=== PATIENT | male | born 1985 | race Caucasian/White ===

== ENCOUNTER 2017-03-16 12:11 | Emergency (ER) | payer OTHER ==
[2017-03-16 12:16] VITALS: RESP 16; TEMP 98.6
--- NOTE | 2017-03-16 12:45 | EDPHY ---
General Narrative: CHIEF COMPLAINT: Head injury, "concussion" HISTORY OF PRESENT ILLNESS: Patient presents with complaints of fall, head injury and "have a concussion." Thursday night around 8:00 p.m. the patient says he was intoxicated and fell forward, striking his head on the ground. He said he had a brief loss of consciousness but this was unwitnessed. He did have a headache that night and has a headache persists. This is a generalized headache. He has had nausea but no vomiting. He had some neck pain at 1st that has nearly resolved. No neck stiffness. He has had difficulty with thought and "cloudy" thought process. He has had some occasional blurred vision but no diplopia. He denies any distal complaints but is here because he is concerned about having a concussion. He is mostly concerned because he has had a severe concussion in the past. Symptoms for this are less than previous. He is here requesting CT scan for his head injury. No other associated complaints or modifying factors. REVIEW OF SYSTEMS: Ten systems reviewed and are negative unless otherwise noted in the HPI PCP: None currently SPECIALISTS: None PAST MEDICAL HISTORY: None PAST SURGICAL HISTORY: None SOCIAL HISTORY: Nonsmoker. Occasional alcohol use. No drug use. Currently waiting to start school in [place] FAMILY HISTORY: Noncontributory EXAMINATION General Appearance: Alert, no distress Head: normocephalic, atraumatic. No Santos sign. No raccoon eyes. No depressions or laceration Eyes: Pupils equal and round, no conjunctival pallor or injection EOMs intact. No nystagmus. ENT, Mouth: Mucous membranes moist. Airway patent Neck: Normal inspection, supple, non-tender. No crepitus or step-off. Painless range of motion all planes. Respiratory: Lungs are clear to auscultation Cardiovascular: Regular rate and rhythm. No murmur Gastrointestinal: Abdomen is soft and nontender Back: non-tender, no bony abnormalities Neurological: GCS 15. Cranial nerves 2-12 grossly intact. A&O, nonfocal, normal gait. Strength is symmetric in the arms and legs. No pronator drift. Normal [id number]. Skin: Warm and dry, no rash no petechiae or purpura Extremities: Nontender, no pedal edema Psychiatric: Mood and affect normal DIFFERENTIAL DIAGNOSES: Including but not limited to concussion, closed head injury, intracranial hemorrhage, cerebral contusion, cerebral edema MDM: 12:40 p.m. Mechanical fall with closed head injury while intoxicated on Thursday evening. Since that time he has had headache, cloudy thought, nausea, nonspecific difficulty with vision. He has also been very sensitive to light and sounds. He is concerned due to previous head injuries and is here asking for CT scan. He has no focal findings on examination. I do feel he is low risk for intracranial abnormality. We discussed risks, benefits and alternatives in the patient like to proceed with CT scan of the head. 1:10 p.m. Notified by radiologist Dr. Friend. CT scan of the head is unremarkable for any acute findings. 1:20 p.m. Patient re-evaluated. I informed him of the negative CT scan findings. I did inform her of the incidental sphenoid sinus finding. He was reassured. We discussed follow up with the on-call primary care physician to establish. We discussed follow up with Dr. Holcomb for post concussive care. We discussed strict restrictions in ED precautions. He and his mother at bedside are comfortable this plan and discharged home stable condition. SUPERVISION: Patient was independently examined, but I discussed the case with my secondary supervising physician Dr. Morataya - Diagnostics Imaging Results: Imaging Impressions Head CT 03/16/17 12:38 Impression: 1. No acute intracranial findings. 2. 2 cm sphenoid mucous retention cyst/polyp. Findings discussed with Raymond Olivas PA-C, 03/16/2017 at 12:57. - History Smoking Status: Never smoked - Objective Vital Signs: Initial Vital Signs Temperature (C) 98.6 F 03/16/17 12:12 Heart Rate 77 03/16/17 12:12 Respiratory Rate 16 03/16/17 12:12 Blood Pressure 117/90 H 03/16/17 12:12 O2 Sat (%) 97 03/16/17 12:12 O2 Delivery Mode Room Air Allergies/Adverse Reactions: No Known Allergies Allergy (Unverified 03/16/17 12:16) Home Medications: Medication Instructions Recorded Ondansetron Odt [Zofran Odt 4 mg 4 mg PO Q6 PRN #12 tab 03/16/17 (*)] Departure - Departure Disposition: Home, Routine, Self-Care Clinical Impression: Concussion Qualifiers: Encounter type: initial encounter Loss of consciousness presence/duration: with LOC of 30 min or less Qualified Code(s): S06.0X1A - Concussion with loss of consciousness of 30 minutes or less, initial encounter Closed head injury Qualifiers: Encounter type: initial encounter Qualified Code(s): S09.90XA - Unspecified injury of head, initial encounter Condition: Good Instructions: Concussion (ED), Post Concussion Syndrome (ED) Additional Instructions: 1. Medications as discussed as needed 2. Contact Dr. Holcomb as provided for outpatient follow-up for the concussion 3. The on-call primary care physician has been provided for you to establish with 4. ED precautions as discussed Referrals: Robbie Villeda MD [Medical Doctor] - As per Instructions Grace Holcomb MD [Medical Doctor] - As per Instructions Stand Alone Forms: Statement of Treatment Prescriptions: Ondansetron Odt [Zofran Odt 4 mg (*)] 4 mg PO Q6 PRN #12 tab PRN Reason: Nausea/Vomiting, Use 1st
[2017-03-16 13:34] VITALS: BP 134/68; PULSE 75; O2SAT 95
== END 2017-03-16 13:32 | disposition home or self-care (01) ==
DX: S06.0X1A Concussion with loss of consciousness of 30 minutes or less, initial encounter (principal); W18.09XA Striking against other object with subsequent fall, initial encounter